=== PATIENT | female | born 1985 | race Caucasian/White ===

== ENCOUNTER 2018-08-12 01:40 | Emergency (ER) | payer MEDICAID ==
--- NOTE | 2018-08-12 06:09 | ER Document Report ---
HPI - HPI Time Seen by Provider: 08/12/18 05:58 Pain Level: 0 Context: Patient is a 33-year-old female that comes emergency department for chief complaint of painful bumps along the side of her tongue, on her tongue, and slightly over the mouth otherwise. She also has a cold sore currently but states this is been there for a little while and it is going away. She denies fever/chills, headache, neck pain. She does report mild intermittent discomfort with swallowing. She denies difficulty swallowing or breathing she is on acyclovir, no other medications. - REPRODUCTIVE Reproductive: DENIES: : Past Medical History - General Information source: Patient - Social History Smoking Status: Never Smoker Frequency of alcohol use: None Drug Abuse: None Lives with: Family Family History: Reviewed & Not Pertinent - Medical History Medical History: Negative - Immunizations Immunizations up to date: Yes Hx Diphtheria, Pertussis, Tetanus Vaccination: Yes Vertical Provider Document - CONSTITUTIONAL General Appearance: WD/WN, No Apparent Distress - INFECTION CONTROL TRAVEL OUTSIDE OF THE [place] IN LAST 30 DAYS: No - HEENT HEENT: Atraumatic, Normocephalic. negative: Normal ENT Exam - Small raised areas consistent with vesicles over the right side of the tongue, slightly over the tongue, and slightly on the soft palate. Small resolving cold sore on the right lower lip as well. Unremarkable oral pharyngeal exam otherwise. Unremarkable ENT exam otherwise. - NECK Neck: Normal Inspection - RESPIRATORY Respiratory: Breath Sounds Normal, No Respiratory Distress - CARDIOVASCULAR Cardiovascular: Regular Rate, Regular Rhythm - GI/ABDOMEN Gastrointestinal: Abdomen Soft, Abdomen Non-Tender - BACK Back: Normal Inspection - MUSCULOSKELETAL/EXTREMETIES Musculoskeletal/Extremeties: MAEW, FROM, Non-Tender - NEURO Level of Consciousness: Awake, Alert, Appropriate - DERM Integumentary: Warm, Dry, No Rash Course - Re-evaluation Re-evalutation: Exam consistent with a viral rash, unremarkable oropharyngeal exam otherwise. Patient is very well-appearing. Unremarkable vital signs. Discharge - Discharge Clinical Impression: Mouth pain Disposition: HOME, SELF-CARE Additional Instructions: Your examination is consistent with gifq-djlm-pvl-mouth disease. This is a viral illness which resolves with time. You can use the mouthwash as prescribed, this can help. For pain I recommend 1000 mg of Tylenol and 600 mg of ibuprofen every 6 hours. Rest, stay hydrated, this will help you recover faster. Follow-up with primary care. Return for any concerning symptoms including fever, swelling of the throat, difficulty breathing, or any other concerning or worsening symptoms. Prescriptions: Nystatin/Dexameth/Diphen [Magic Mouthwash ([facility] Formula) Susp] 5 ml PO QID #120 ml Referrals: [facility] [Provider Group] - Follow up as needed
[2018-08-12 07:55] VITALS: BP 137/93
== END 2018-08-12 06:20 | disposition home or self-care (01) ==
LOC: ER 01:40
DX: K08.89 Other specified disorders of teeth and supporting structures (principal); B00.1 Herpesviral vesicular dermatitis
CPT/HCPCS: 99282

== ENCOUNTER 2019-04-30 03:28 | Emergency (ER) | payer MEDICAID ==
[2019-04-30 03:52] VITALS: BP 148/99
== END 2019-04-30 06:14 | disposition left against medical advice (07) ==
LOC: ER 03:28
DX: Z53.21 Procedure and treatment not carried out due to patient leaving prior to being seen by health care provider (principal)

== ENCOUNTER 2019-05-01 01:27 | Emergency (ER) | payer MEDICAID ==
--- NOTE | 2019-05-01 04:44 | ER Document Report ---
ED General - General Chief Complaint: Insect Bite Stated Complaint: POSSIBLE SPIDER BITE Time Seen by Provider: 05/01/19 04:36 Mode of Arrival: Ambulatory Information source: Patient TRAVEL OUTSIDE OF THE [place] IN LAST 30 DAYS: No - HPI Patient complains to provider of: possible insect bite to back of neck Onset: Other - 2-3 days ago Onset/Duration: Gradual Quality of pain: Pressure Severity: Mild Pain Level: 2 Associated symptoms: Other - redness of skin, scabbing of area she thinks was bitten by an insect Exacerbated by: Denies Relieved by: Denies Similar symptoms previously: No Recently seen / treated by doctor: No - Related Data Allergies/Adverse Reactions: No Known Allergies Allergy (Unverified 08/12/18 01:52) Home Medications: valtrex Past Medical History - Social History Smoking Status: Current Every Day Smoker Frequency of alcohol use: Social Drug Abuse: None Family History: Reviewed & Not Pertinent Patient has suicidal ideation: No Patient has homicidal ideation: No - Medical History Medical History: Negative Renal/ Medical History: Denies: Hx Peritoneal Dialysis - Immunizations Immunizations up to date: Yes Hx Diphtheria, Pertussis, Tetanus Vaccination: Yes Review of Systems - Review of Systems Constitutional: No symptoms reported EENT: No symptoms reported Cardiovascular: No symptoms reported Respiratory: No symptoms reported Gastrointestinal: No symptoms reported Genitourinary: No symptoms reported Female Genitourinary: No symptoms reported Musculoskeletal: No symptoms reported Skin: Other - scabbed area on back of neck with some surrounding area of redness and warmth Hematologic/Lymphatic: No symptoms reported Neurological/Psychological: No symptoms reported Physical Exam - Vital signs Vitals: Temp Pulse Resp BP Pulse Ox 98.3 F 105 H 18 131/54 H 100 05/01/19 01:33 05/01/19 01:33 05/01/19 01:33 05/01/19 01:33 05/01/19 01:33 - Notes Notes: GENERAL: Well-appearing, well-nourished and in no acute distress. HEAD: Atraumatic, normocephalic. EYES: Pupils equal round and reactive to light, extraocular movements intact, sclera anicteric, conjunctiva are normal. ENT: TMs normal, nares patent, oropharynx clear without exudates. Moist mucous membranes. Left upper molar pain with clear cavity and decay. NECK: Normal range of motion, supple without lymphadenopathy or JVD. LUNGS: Breath sounds clear to auscultation bilaterally and equal. No wheezes rales or rhonchi. HEART: Regular rate and rhythm without murmurs, rubs or gallops. ABDOMEN: Soft, nontender, normoactive bowel sounds. No guarding, no rebound. No masses appreciated. EXTREMITIES: Normal range of motion, no pitting or edema. No clubbing or cyanosis. NEUROLOGICAL: Cranial nerves II through XII grossly intact. Normal speech, normal gait. PSYCH: Normal mood, normal affect. SKIN: Warm, Dry, normal turgor, no rashes. Nickel sized scab/eschar on back of neck with surrounding erythema and warmth. No fluctuance/fluid collections noted. 2 smaller (1-2mm) scabs in same area inferior the the larger one Course - Re-evaluation Re-evalutation: 05/01/19 04:48 The patient seems to have cellulitis of the back of her neck. It is possible she was bitten by a spider such as a brown recluse but it is also possible this is a MRSA infection. Will treat with Clindamycin. No abscess noted noted on exam so no need to incise. Patient also is having dental pain and she has a cavity and dental decay. The Clindamycin should help this but will also provide naproxen. Patient told to follow up with a PCP and Dentist. - Vital Signs Vital signs: Temp Pulse Resp BP Pulse Ox 98.3 F 105 H 18 131/54 H 100 05/01/19 01:37 05/01/19 01:37 05/01/19 01:37 05/01/19 01:37 05/01/19 01:37 Discharge - Discharge Clinical Impression: Cellulitis, neck, Pain, dental Condition: Stable Disposition: HOME, SELF-CARE Instructions: Toothache ([facility]), MRSA Cellulitis ([facility]) Additional Instructions: Take antibiotics (Clindamycin) as prescribed for your neck skin infection and your dental discomfort. Use the prescribed Naproxen for pain. Follow up with a primary care doctor for your neck infection and follow up with a Dentist for your dental pain. Prescriptions: Clindamycin HCl 450 mg PO TID #21 capsule Naproxen 500 mg PO BID PRN #14 tablet PRN Reason: Referrals: ASHWIN LIN MD [[facility]] - Follow up as needed
[2019-05-01] MEDS ORDERED: CLINDAMYCIN HCL 150 MG CAPSULE PO ONE (04:53)
[2019-05-01] MEDS ORDERED: NAPROXEN 250 MG TABLET PO ONE (04:54)
[2019-05-01] MEDS ORDERED: CLINDAMYCIN HCL 150 MG CAPSULE ONE (05:16)
[2019-05-01 05:29] VITALS: BP 106/81
== END 2019-05-01 05:29 | disposition home or self-care (01) ==
LOC: ER 01:27
DX: L03.221 Cellulitis of neck (principal); K02.9 Dental caries, unspecified; K08.89 Other specified disorders of teeth and supporting structures; F17.200 Nicotine dependence, unspecified, uncomplicated
CPT/HCPCS: 99281; J3490 ×2

== ENCOUNTER 2019-06-20 13:44 | Emergency (ER) | payer MEDICAID ==
[2019-06-20 14:04] VITALS: BP 143/112
[2019-06-20] MEDS ORDERED: ASPIRIN 81 MG TABLET, CHEWABLE PO ONE (14:51)
--- NOTE | 2019-06-20 14:53 | ER Document Report ---
ED Medical Screen (RME) - General Chief Complaint: Chest Tightness Stated Complaint: COUGH Time Seen by Provider: 06/20/19 14:48 Mode of Arrival: Ambulatory Information source: Patient Notes: Patient presents complaining of cold symptoms for the past 2 weeks. Patient reports she developed shortness of breath with left-sided chest pain for the past 3 days. Patient describes pain as sharp in nature. No fever. No nausea or vomiting. I have greeted and performed a rapid initial assessment of this patient. A comprehensive ED assessment and evaluation of the patient, analysis of test res ults and completion of the medical decision making process will be conducted by additional ED providers. TRAVEL OUTSIDE OF THE [place] IN LAST 30 DAYS: No - Related Data Allergies/Adverse Reactions: No Known Allergies Allergy (Unverified 08/12/18 01:52) Past Medical History - Social History Frequency of alcohol use: None Drug Abuse: None Renal/ Medical History: Denies: Hx Peritoneal Dialysis - Immunizations Immunizations up to date: Yes Hx Diphtheria, Pertussis, Tetanus Vaccination: Yes Physical Exam - Vital signs Vitals: Temp Pulse Resp BP Pulse Ox 98.0 F 91 18 143/112 H 100 06/20/19 14:03 06/20/19 14:03 06/20/19 14:03 06/20/19 14:03 06/20/19 14:03 - Respiratory Respiratory status: No respiratory distress Chest status: Tender, Pain on movement Breath sounds: Nonproductive cough Course - Vital Signs Vital signs: Temp Pulse Resp BP Pulse Ox 98.0 F 91 18 143/112 H 100 06/20/19 14:03 06/20/19 14:03 06/20/19 14:03 06/20/19 14:03 06/20/19 14:03
--- NOTE | 2019-06-20 15:22 | RADIOLOGY REPORT (SQ) ---
EXAM DESCRIPTION: CHEST 2 VIEWS COMPLETED DATE/TIME: 06/20/2019 3:11 pm REASON FOR STUDY: cp COMPARISON: None. EXAM PARAMETERS: NUMBER OF VIEWS: two views TECHNIQUE: Digital Frontal and Lateral radiographic views of the chest acquired. RADIATION DOSE: NA LIMITATIONS: none FINDINGS: LUNGS AND PLEURA: No opacities, masses or pneumothorax. No pleural effusion. MEDIASTINUM AND HILAR STRUCTURES: No masses or contour abnormalities. HEART AND VASCULAR STRUCTURES: Heart normal size. No evidence for failure. BONES: No acute findings. HARDWARE: None in the chest. OTHER: No other significant finding. IMPRESSION: NO ACUTE RADIOGRAPHIC FINDING IN THE CHEST. TECHNICAL DOCUMENTATION: JOB ID: [id number] [employer]- All Rights Reserved Reading location - IP/workstation name: [email or web address]
[2019-06-20 16:22] LABS: ABSOLUTE BASOPHILS # (AUTO) 0.1 10^3/uL (0.0-0.2); ABSOLUTE EOSINOPHILS # (AUTO) 0.1 10^3/uL (0.0-0.6); ABSOLUTE LYMPHOCYTES (AUTO) 3.8 10^3/uL (0.5-4.7); ABSOLUTE MONOCYTES (AUTO) 0.6 10^3/uL (0.1-1.4); ABSOLUTE NEUT (AUTO) 3.9 10^3/uL (1.7-8.2); EOSINOPHILS % (AUTO) 1.5 % (0-6); HEMATOCRIT 39.2 % (36.0-47.0); HEMOGLOBIN 13.5 g/dL (12.0-15.5); LYMPHOCYTES % (AUTO) 44.8 % (13-45); MEAN CORPUSCULAR HEMOGLOBIN 29.1 pg (27.0-33.4); MEAN CORPUSCULAR HGB CONC 34.4 g/dL (32.0-36.0); MEAN CORPUSCULAR VOLUME 85 fl (80-97); MONOCYTES % (AUTO) 6.7 % (3-13); PLATELET COUNT 293 10^3/uL (150-450); RED BLOOD COUNT 4.63 10^6/uL (3.72-5.28); TOTAL CELLS COUNTED % (AUTO) 100 %; WHITE BLOOD COUNT 8.4 10^3/uL (4.0-10.5)
[2019-06-20 16:41] LABS: ALBUMIN 4.4 g/dL (3.5-5.0); ALKALINE PHOSPHATASE 82 U/L (38-126); ANION GAP 11 (5-19); ASPARTATE AMINO TRANSFERASE 24 U/L (14-36); BILIRUBIN,DIRECT 0.3 mg/dL (0.0-0.4); BILIRUBIN,TOTAL 0.3 mg/dL (0.2-1.3); BLOOD UREA NITROGEN 13 mg/dL (7-20); CALCIUM 10.1 mg/dL (8.4-10.2); CARBON DIOXIDE 27 mmol/L (22-30); CHLORIDE 101 mmol/L (98-107); GLUCOSE 109 mg/dL (75-110); POTASSIUM 4.2 mmol/L (3.6-5.0); TOTAL PROTEIN 7.5 g/dL (6.3-8.2)
[2019-06-20] MEDS ORDERED: BENZONATATE 100 MG CAPSULE PO ONE (18:33)
[2019-06-20] MEDS ORDERED: METHYLPREDNISOLONE INJ 125 MG/2 ML SDV IV ONE (18:33)
[2019-06-20] MEDS ORDERED: IPRATROPIUM/ALBUTEROL 0.5-2.5 MG/3 ML AMPUL NEB ONE (18:33)
--- NOTE | 2019-06-20 18:40 | ER Document Report ---
ED General - General Chief Complaint: Chest Tightness Stated Complaint: COUGH Time Seen by Provider: 06/20/19 14:48 Mode of Arrival: Ambulatory Notes: 34-year-old female with history of cigarette smoking presents with cough and nasal congestion for the past 2 weeks and chest pain and shortness of breath that started 2 days ago. Patient states the chest pain is left-sided and feels like a tightness with dyspnea. Patient denies any nausea/vomiting, abdominal pain, dizziness, fever. Patient states she has not been coughing up anything. Patient denies any recent long distance travel, recent hospitalizations, recent surgeries, control or estrogen use, personal history of cancer, or family history of PE or DVT. TRAVEL OUTSIDE OF THE [place] IN LAST 30 DAYS: No - Related Data Allergies/Adverse Reactions: No Known Allergies Allergy (Unverified 08/12/18 01:52) Past Medical History - General Information source: Patient - Social History Smoking Status: Current Every Day Smoker Frequency of alcohol use: None Drug Abuse: None Family History: Reviewed & Not Pertinent Patient has suicidal ideation: No Patient has homicidal ideation: No Renal/ Medical History: Denies: Hx Peritoneal Dialysis - Immunizations Immunizations up to date: Yes Hx Diphtheria, Pertussis, Tetanus Vaccination: Yes Review of Systems - Review of Systems Notes: Constitutional: Negative for fever. HENT: Positive for nasal congestion. Negative for sore throat. Eyes: Negative for visual changes. Cardiovascular: Positive for chest pain. Respiratory: Positive for shortness of breath and nonproductive cough.. Gastrointestinal: Negative for abdominal pain, vomiting or diarrhea. Genitourinary: Negative for dysuria. Musculoskeletal: Negative for back pain. Skin: Negative for rash. Neurological: Negative for headaches, weakness or numbness. 10 point ROS negative except as marked above and in HPI. Physical Exam - Vital signs Vitals: Temp Pulse Resp BP Pulse Ox 98.0 F 91 18 143/112 H 100 06/20/19 14:03 06/20/19 14:03 06/20/19 14:03 06/20/19 14:03 06/20/19 14:03 - Notes Notes: GENERAL: Well-appearing, well-nourished and in no acute distress. HEAD: Atraumatic, normocephalic. EYES: Extraocular movements intact, sclera anicteric, conjunctiva are normal. ENT: Nasal congestion, nares patent, oropharynx clear without exudates. Moist mucous membranes. NECK: Normal range of motion, supple without lymphadenopathy or JVD. LUNGS: Dry coughing. Mildly decreased breath sounds. No wheezes rales or rhonchi. HEART: Regular rate and rhythm without murmurs, rubs or gallops. EXTREMITIES: Normal range of motion, no pitting or edema. No clubbing or cyanosis. NEUROLOGICAL: Cranial nerves II through XII grossly intact. Normal speech, normal gait. PSYCH: Normal mood, normal affect. SKIN: Warm, Dry, normal turgor, no rashes or lesions noted. Course - Re-evaluation Re-evalutation: 06/20/19 nontoxic, well-appearing 34-year-old female presents with chest tightness and shortness of breath for the past 2 days. Patient has had a nonproductive cough and nasal congestion for the last 2 weeks. Auscultation reveals mildly decreased breath sounds with no wheezing, rales, rhonchi. Regular rate and rhythm. Chest x-ray shows no pneumonia or pneumothorax. Low clinical suspicion of ACS based on history, clinical exam, and work-up. EKG shows no ST elevation. Initial troponin is negative. Low clinical suspicion of PE. Patient is PERC negative. 3-hour troponin and d-dimer ordered. 06/20/19 20:05 Pt eloped. - Vital Signs Vital signs: Temp Pulse Resp BP Pulse Ox 98.0 F 91 18 143/112 H 100 06/20/19 14:03 06/20/19 14:03 06/20/19 14:03 06/20/19 14:03 06/20/19 14:03 - Laboratory Result Diagrams: 06/20/19 16:00 06/20/19 16:00 Discharge - Discharge Clinical Impression: Eloped from emergency department Chest pain Qualifiers: Chest pain type: unspecified Qualified Code(s): R07.9 - Chest pain, unspecified Disposition: ELOPED
== END 2019-06-20 20:10 | disposition left against medical advice (07) ==
LOC: ER 13:44
DX: R07.89 Other chest pain (principal); R05 Cough; R09.81 Nasal congestion; R06.02 Shortness of breath; F17.210 Nicotine dependence, cigarettes, uncomplicated; Z53.20 Procedure and treatment not carried out because of patient's decision for unspecified reasons
CPT/HCPCS: 94640; 99281; 96374; 36415; 84703; 85025; 80053; 84484; 85379; 71046; J3490; J2930; J7620